=== PATIENT | male | born 1995 | race Caucasian/White ===

== ENCOUNTER 2018-10-04 16:01 | Emergency (ER) | payer OTHER ==
[~2018-10-04] VITALS: Ht 177.8 cm; Wt 111.1 kg
[2018-10-04] MEDS ORDERED: NORCO 7.5-3251 EACH PO (17:41)
[2018-10-04] MEDS ORDERED: KEFLEX500 MG PO (17:41)
== END 2018-10-04 17:55 | disposition home or self-care (01) ==
LOC: ED 16:01
DX: S60.551A Superficial foreign body of right hand, initial encounter (principal); Z88.8 Allergy status to other drugs, medicaments and biological substances; W45.8XXA Other foreign body or object entering through skin, initial encounter
CPT/HCPCS: 90471; 90715; 99283-25

== ENCOUNTER 2021-05-20 13:16 | Emergency (ER) | payer BC ==
[~2021-05-20] VITALS: Ht 177.8 cm; Wt 95.2 kg
[~2021-05-20 13:16] MED LIST: KEFLEX500 MG PO; NORCO 7.5-3251 EACH PO
--- NOTE | 2021-05-21 13:15 | EKG ---
[facility] [address] [address] [place], [place] [address] Signed Sinus bradycardia with sinus arrhythmia Otherwise normal ECG No previous ECGs available Confirmed by SARAH HOLLAND MD ([id number] on 05/21/2021 1:15:26 PM Electronically Signed By: SARAH HOLLAND MD 05/21/21 1315 PATIENT NAME: TERE MADRID Electrocardiogram DATE OF : [birth year] PHYSICIAN: SARAH HOLLAND MD REPORT #: [id number] REPORT IS CONFIDENTIAL AND NOT TO BE RELEASED WITHOUT AUTHORIZATION
== END 2021-05-20 15:19 | disposition home or self-care (01) ==
LOC: ED 13:16
DX: R07.9 Chest pain, unspecified (principal); Z88.8 Allergy status to other drugs, medicaments and biological substances
CPT/HCPCS: 36415; 71045; 80053; 83735; 84484; 85025; 93005; 93010; 99285-25